=== PATIENT | female | born 1940 | race Caucasian/White ===

== ENCOUNTER → 2017-11-11 | Outpatient (CLI) | payer OTHER ==
[~2017-11-11] MED LIST: ASPIRIN81 M2; BACTRIM DS TAB1 EACH PO; CRESTOR20 MG PO; FISH OIL 1,0001 EAC7 PO; LISINOPRIL10 MG PO; MULTIVITAMINS; PREDNISONE 10 M10 MG PO
== END ==
LOC: M.RAD 11:00
DX: Z12.31 Encounter for screening mammogram for malignant neoplasm of breast (principal); I10 Essential (primary) hypertension; E78.00 Pure hypercholesterolemia, unspecified